=== PATIENT | female | born 1935 | race Caucasian/White ===

== ENCOUNTER 2019-04-03 13:22 | Day surgery (SDC) | payer OTHER, BC ==
[2019-04-01 17:50] VITALS: BMI 26.6
[~2019-04-03 13:22] MED LIST: ACETAMINOPHEN 1000 MG/100 ML VIAL (NON FORMULARY) IVPB ONE; ACETAMINOPHEN INJECTION 100 ML IVPB ONE; DEXTROSE 5%-0.45% SALINE 1,000 ML IV SCH; LACTATED RINGERS SOLUTION 1,000 ML IV SCH; ONDANSETRON 4 MG/2 ML VIAL IVPUSH PRN; ceFAZolin SODIUM 1 GM VIAL IVPB ONE; mitoMYcin 40 MG/50 ML DISP.SYRIN (FOR OR USE) IC ONE; oxyCODONE HCL 5 MG TABLET PO PRN
[2019-04-03] MEDS ORDERED: ceFAZolin SODIUM 1 GM VIAL ONE (18:24)
[2019-04-03] MEDS ORDERED: DEXTROSE 5%-WATER - 50 ML IVPB ONE (18:25)
[2019-04-03] MEDS: CEFAZOLIN 1 GM in DEXTROSE 5%-WATER - 50 ML IVPB SCH (18:38)
[2019-04-04] MEDS ORDERED: ceFAZolin SODIUM 1 GM VIAL ONE ×2 (01:39→10:04)
[2019-04-04] MEDS ORDERED: DEXTROSE 5%-WATER - 50 ML IVPB ONE ×2 (01:39→10:04)
[2019-04-04] MEDS: CEFAZOLIN 1 GM in DEXTROSE 5%-WATER - 50 ML IVPB SCH ×2 (02:06→10:15)
[2019-04-04 08:29] LABS: BASO % 0.3 % (0-2.0); EOS % 0.1 % (0-4.5); HEMATOCRIT 33.5 % (32.4-45.2); HEMOGLOBIN 11.5 GM/dL (10.7-15.3); LYMPH % 5.1 % (8-40); MCH 30.3 pg (25.7-33.7); MCHC 34.2 g/dl (32.0-36.0); MEAN CELL VOLUME 88.4 fl (80-96); MONO % 6.8 % (3.8-10.2); NEUT % 87.7 % (42.8-82.8); PLATELET COUNT 201 K/MM3 (134-434); RBC 3.79 M/mm3 (3.60-5.2); RDW 14.3 % (11.6-15.6); WHITE BLOOD COUNT 10.7 K/mm3 (4.0-10.0)
[2019-04-04 08:52] LABS: BLOOD UREA NITROGEN 13.4 mg/dL (7-18); CALCIUM 8.4 mg/dL (8.5-10.1); CREATININE 0.8 mg/dL (0.55-1.3); POTASSIUM 3.9 mmol/L (3.5-5.1)
--- NOTE | 2019-04-04 10:42 | PN ---
Progress Note (short form) - Note Progress Note: s/p TURBT urine pink d/c home today w greene outpt f/u with DR Villalobos
[2019-04-04 11:57] VITALS: BP 135/58; PULSE 82; TEMP 98.8
--- NOTE | 2019-04-05 13:51 | PATH ---
Surgical Pathology Report Patient Name: JEROME CRUZ [facility]. Rec. #: [id number] /Age/Gender: 1935 (Age: 83) / F Account: <[id number]> Location: AMBULATORY SURG Taken: 04/03/2019 Received: 04/03/2019 Reported: 04/05/2019 Physicians: Salvador Villalobos M.D. Specimen(s) Received BLADDER CHIPS Clinical History Bladder mass Final Diagnosis BLADDER CHIPS, MASS, TRANSURETHRAL RESECTION OF BLADDER TUMOR: LOW GRADE PAPILLARY UROTHELIAL CARCINOMA, NON-INVASIVE. MUSCULARIS PROPRIA IDENTIFIED. NO FLAT CARCINOMA IN SITU (CIS) IDENTIFIED. Comment: Case seen in intradepartmental review with consensus on diagnosis. Findings discussed with Dr. Villalobos. Electronically Signed Argelia Vaughan M.D. Gross Description Received in formalin labeled "bladder chips," is a 5.5 x 5.0 x 0.5 cm aggregate of simpson pink soft tissue fragments. The formalin is filtered and the specimen is entirely submitted in 6 cassettes. /04/04/2019 [facility]04/04/2019
--- NOTE | 2019-04-05 15:19 | OP ---
DATE OF OPERATION: 04/03/2019 PREOPERATIVE DIAGNOSIS: Bladder cancer, trigone. POSTOPERATIVE DIAGNOSIS: Bladder cancer, trigone. PROCEDURE: Cystoscopy, transurethral resection of bladder tumor, large, and instillation of mitomycin. SURGEON: Salvador Villalobos MD ESTIMATED BLOOD LOSS: 25 mL. SPECIMEN: Bladder tumor. DRAINS: Jorge catheter. PREOPERATIVE INDICATIONS: Patient is an 83-year-old female who is an ex-smoker who has recently been diagnosed with a lung mass. She also experienced gross hematuria, and CT scan reveals a large tumor in her bladder. She comes to the OR today for resection of the bladder tumor and mitomycin. DESCRIPTION OF PROCEDURE: The patient was brought to the OR. Placed on the table in the supine position. Given general anesthesia and IV antibiotics and placed in modified lithotomy position. The groin was prepped and draped sterilely. Cystoscopy was performed. Urethra was normal. The bladder itself had mild trabeculations; however, it was mostly unremarkable except for a large tumor overlying the trigone obscuring the right ureteral orifice. The tumor appeared to be approximately 6 cm in size. Using the resectoscope, the tumor was resected down to the base including muscularis tissue. The pieces were then irrigated out with an Ellik evacuator for histopathological analysis. Good hemostasis was maintained. No evidence of bladder perforation was seen. The abdomen was also soft at the end of the case. The right ureteral orifice wound visible at the end of the case. The left UO was visible with clear efflux. A Jorge catheter was placed, and 50 mL of 40 mg of mitomycin was infused into the bladder, and the catheter was clamped. The patient was woken up. SALVADOR VILLALOBOS M.D. [id number]
== END 2019-04-04 12:17 | disposition home or self-care (01) ==
LOC: JASUSAT 13:22 → J6S 18:22 → JASUSAT 04-04 12:17
PROVIDERS: ATTEND Urology
PROC: 0T5B8ZZ Destruction of Bladder, Via Natural or Artificial Opening Endoscopic (ICD-10-PCS; principal; 2019-04-03 11:47)
DX: C67.0 Malignant neoplasm of trigone of bladder (principal)
CPT/HCPCS: 36415; 80048; 85025; 94760; J0131

== ENCOUNTER 2020-06-15 17:17 | Inpatient (IN) | payer OTHER, BC ==
[2020-06-15 17:44] VITALS: BMI 27.4
[2020-06-15 19:53] LABS: HEMATOCRIT 41.6 % (32.4-45.2); HEMOGLOBIN 13.8 GM/dL (10.7-15.3); MCH 29.8 pg (25.7-33.7); MCHC 33.2 g/dl (32.0-36.0); MEAN CELL VOLUME 89.8 fl (80-96); MEAN PLT VOLUME 8.3 fl (7.5-11.1); PLATELET COUNT 185 K/MM3 (134-434); RBC 4.63 M/mm3 (3.60-5.2); RDW 16.7 % (11.6-15.6); WHITE BLOOD COUNT 12.5 K/mm3 (4.0-10.0)
[2020-06-15 20:12] LABS: CHLORIDE 106 mmol/L (98-107); POTASSIUM 3.7 mmol/L (3.5-5.1); SODIUM 141 mmol/L (136-145)
[2020-06-15 20:14] LABS: CALCIUM 9.5 mg/dL (8.5-10.1)
[2020-06-15 20:15] LABS: ALBUMIN 3.7 g/dl (3.4-5.0); ANION GAP 5 MMOL/L (8-16); BLOOD UREA NITROGEN 12.7 mg/dL (7-18); CO2 31 mmol/L (21-32); GLUCOSE,RANDOM 94 mg/dL (74-106)
[2020-06-15 20:18] LABS: CREATININE 0.8 mg/dL (0.55-1.3); SGOT/AST 24 U/L (15-37); SGPT/ALT 32 U/L (13-61)
[2020-06-15 20:19] LABS: BILIRUBIN,TOTAL 0.6 mg/dL (0.2-1)
[2020-06-15 20:21] LABS: ALK PHOS 95 U/L (45-117)
[2020-06-15] MEDS ORDERED: PHENYTOIN NA EXTENDED 100 MG CAPSULE (FP) PO ONE (22:55)
[2020-06-15] MEDS ORDERED: ESCITALOPRAM OXALATE 20 MG TABLET PO ONE (22:56)
[2020-06-15] MEDS ORDERED: ATORVASTATIN CA 10 MG TABLET (FP) PO ONE (22:57)
[2020-06-15] MEDS ORDERED: ESCITALOPRAM OXALATE 10 MG TABLET ONE (23:50)
[2020-06-15] MEDS ORDERED: ATORVASTATIN CA 10 MG TABLET (FP) ONE (23:50)
[2020-06-15] MEDS ORDERED: PHENYTOIN NA EXTENDED 100 MG CAPSULE (FP) ONE (23:50)
[2020-06-16] MEDS ORDERED: LEVOTHYROXINE NA 88 MCG TABLET (FP) PO ONE (16:52)
[2020-06-16] MEDS ORDERED: DEXAMETHASONE 4 MG TABLET (FP) PO ONE (16:52)
[2020-06-16] MEDS ORDERED: PHENYTOIN NA EXTENDED 100 MG CAPSULE (FP) PO ONE (16:55)
[2020-06-16] MEDS ORDERED: PHENYTOIN NA EXTENDED 100 MG CAPSULE (FP) ONE (17:49)
[2020-06-16] MEDS ORDERED: DEXAMETHASONE 4 MG TABLET (FP) ONE (17:50)
[2020-06-16 19:44] LABS: HEMATOCRIT 39.9 % (32.4-45.2); HEMOGLOBIN 13.3 GM/dL (10.7-15.3); MCHC 33.3 g/dl (32.0-36.0); MEAN PLT VOLUME 8.8 fl (7.5-11.1); PLATELET COUNT 175 K/MM3 (134-434); RBC 4.44 M/mm3 (3.60-5.2); RDW 17.1 % (11.6-15.6); WHITE BLOOD COUNT 12.6 K/mm3 (4.0-10.0)
[2020-06-16] MEDS ORDERED: DEXAMETHASONE 0.5 MG TABLET PO ONE (20:01)
[2020-06-16 20:08] LABS: CHLORIDE 106 mmol/L (98-107); POTASSIUM 3.6 mmol/L (3.5-5.1); SODIUM 140 mmol/L (136-145)
[2020-06-16 20:10] LABS: CALCIUM 9.5 mg/dL (8.5-10.1)
[2020-06-16 20:11] LABS: ALBUMIN 3.4 g/dl (3.4-5.0); ANION GAP 8 MMOL/L (8-16); BLOOD UREA NITROGEN 21.6 mg/dL (7-18); CO2 26 mmol/L (21-32); GLUCOSE,RANDOM 121 mg/dL (74-106)
[2020-06-16 20:14] LABS: CREATININE 0.7 mg/dL (0.55-1.3); SGOT/AST 24 U/L (15-37); SGPT/ALT 27 U/L (13-61)
[2020-06-16 20:15] LABS: BILIRUBIN,TOTAL 0.9 mg/dL (0.2-1)
[2020-06-16 20:16] LABS: TOT PROT 6.7 g/dl (6.4-8.2)
[2020-06-16 20:18] LABS: ALK PHOS 89 U/L (45-117)
[2020-06-16] MEDS ORDERED: DEXAMETHASONE SOD PHOSPHATE 4 MG/1 ML VIAL ONE (20:35)
[2020-06-16] MEDS: ATORVASTATIN CA 10 MG TABLET (FP) PO SCH (22:34)
[2020-06-17] MEDS ORDERED: LEVOTHYROXINE NA 88 MCG TABLET (FP) PO SCH (07:00)
[2020-06-17 09:32] LABS: BASO % 0.1 % (0-2.0); EOS % 0.1 % (0-4.5); HEMATOCRIT 40.7 % (32.4-45.2); HEMOGLOBIN 13.8 GM/dL (10.7-15.3); LYMPH % 3.2 % (8-40); MCH 30.5 pg (25.7-33.7); MEAN CELL VOLUME 89.8 fl (80-96); MEAN PLT VOLUME 8.4 fl (7.5-11.1); MONO % 5.9 % (3.8-10.2); NEUT % 90.7 % (42.8-82.8); PLATELET COUNT 169 K/MM3 (134-434); RBC 4.54 M/mm3 (3.60-5.2); RDW 16.9 % (11.6-15.6); WHITE BLOOD COUNT 12.6 K/mm3 (4.0-10.0)
[2020-06-17] MEDS ORDERED: DEXAMETHASONE 4 MG TABLET (FP) PO SCH (10:00)
[2020-06-17] MEDS ORDERED: ENOXAPARIN NA (PORCINE) 40 MG/0.4 ML DISP.SYRIN SQ SCH (10:00)
[2020-06-17] MEDS ORDERED: ESCITALOPRAM OXALATE 20 MG TABLET PO SCH (10:00)
[2020-06-17] MEDS ORDERED: PHENYTOIN NA EXTENDED 100 MG CAPSULE (FP) PO SCH (10:00)
[2020-06-17 10:38] LABS: CALCIUM 9.5 mg/dL (8.5-10.1)
[2020-06-17 10:39] LABS: ALBUMIN 3.6 g/dl (3.4-5.0); MAGNESIUM 2.3 mg/dL (1.8-2.4)
[2020-06-17 10:42] LABS: CREATININE 0.7 mg/dL (0.55-1.3); PHOSPHOROUS 3.6 mg/dL (2.5-4.9)
[2020-06-17 10:43] LABS: BILIRUBIN,TOTAL 0.8 mg/dL (0.2-1)
[2020-06-17 10:44] LABS: TOT PROT 7.1 g/dl (6.4-8.2)
[2020-06-17] MEDS ORDERED: ALBUTEROL SO4 2.5/IPRATROPIUM 0.5 INH SOL 3 ML VIAL.NEB. NEB PRN (19:35)
[2020-06-17] MEDS: ATORVASTATIN CA 10 MG TABLET (FP) PO SCH (21:50)
[2020-06-18 01:16] VITALS: BP 141/79; PULSE 92; TEMP 98.6
== END 2020-06-17 22:02 | disposition short-term general hospital (02) | DRG 55 ==
LOC: JER 17:17 → JERBED 06-16 19:36 → J5S 06-17 02:11
PROVIDERS: ADMIT Hospitalist
DX: C79.31 Secondary malignant neoplasm of brain (principal); C34.90 Malignant neoplasm of unspecified part of unspecified bronchus or lung; R55 Syncope and collapse; I10 Essential (primary) hypertension; E78.5 Hyperlipidemia, unspecified; E03.9 Hypothyroidism, unspecified; R56.9 Unspecified convulsions; F32.9 Major depressive disorder, single episode, unspecified; G40.909 Epilepsy, unspecified, not intractable, without status epilepticus
CPT/HCPCS: 36415; 70450-TC; 71045-TC-FY; 72125-TC; 72170-TC-FY; 73502-TC-RT-FY; 80053; 83735; 84100; 84443; 84484; 85025; 85027; 93005; 93010; 99285-25; C9803; J8540; U0003